=== PATIENT | female | born 1980 | race Caucasian/White ===

== ENCOUNTER 2018-07-07 20:57 | Emergency (ER) | payer OTHER ==
[~2018-07-07] VITALS: Ht 160 cm; Wt 72.6 kg
[2018-07-07 21:12] VITALS: BP 138/87
[2018-07-07 21:46] LABS: APPEARANCE,URINE CLOUDY (CLEAR)
[2018-07-07 21:47] LABS: BILIRUBIN,URINE NEGATIVE (NEGATIVE); BLOOD, URINE NEGATIVE (NEGATIVE); COLOR,URINE YELLOW (YELLOW); PH,URINE 6.5 (5.0-9.0); UGLUCOSE NEGATIVE (NEGATIVE)
[2018-07-07 21:48] LABS: LEUKOCYTE ESTERASE ,URINE 1+ (NEGATIVE); NITRITE, URINE POSITIVE (NEGATIVE)
[2018-07-07 21:55] LABS: RBC,URINE 11-20 (MOD) /HPF (0-5)
[2018-07-07 22:00] LABS: BASOPHILS # (AUTO) 0.1 K/uL (0.00-0.22); BASOPHILS % (AUTO) 0.7 % (0.0-2.0); EOSINOPHILS # (AUTO) 0.1 K/uL (0-0.4); EOSINOPHILS % (AUTO) 1.7 % (0.0-4.0); HEMATOCRIT 27.3 % (36-48); LYMPHOCYTES # (AUTO) 3.1 K/uL (2.5-16.5); LYMPHOCYTES % (AUTO) 38.1 % (20.5-51.1); MEAN CORPUSCULAR HEMOGLOBIN 18 pg (27-31); MEAN CORPUSCULAR HGB CONC 29 g/dL (33-37); MEAN CORPUSCULAR VOLUME 60.6 fL (80-94); MONOCYTES # (AUTO) 0.5 K/uL (0.8-1.0); MONOCYTES % (AUTO) 6.2 % (1.7-9.3); NEUTROPHILS # (AUTO) 4.3 K/uL (1.8-7.7); NEUTROPHILS % (AUTO) 53.3 % (42.2-75.2); PLATELET COUNT (AUTO) 285 K/uL (140-450); RED BLOOD CELL COUNT(AUTO) 4.51 MIL/uL (4.20-5.40); RED CELL DISTRIBUTION WIDTH 18.9 % (11.6-13.7); WHITE BLOOD COUNT (AUTO) 8.1 K/uL (4.8-10.8)
[2018-07-07 22:18] LABS: ANION GAP 13.2 (8-16); CARBON DIOXIDE 26.1 mmol/L (21-32); CREATININE 0.6 mg/dL (0.6-1.3); POTASSIUM 4.3 mmol/L (3.5-5.1)
[2018-07-07 22:20] LABS: BARBITURATE, URINE NEG. ng/ml (NEG <=200); BENZODIAZEPINE, URINE NEG. ng/mL (NEG <=200); CANNABINOID, URINE POS. ng/mL (NEG <=50); COCAINE, URINE NEG. ng/mL (NEG <=300); OPIATE, URINE NEG. ng/mL (NEG <=2000); PHENCYCLIDINE SCREEN,URINE NEG. ng/mL (NEG <=25)
[2018-07-07 22:24] LABS: ALBUMIN 3.9 g/dL (3.4-5.0); TOTAL BILIRUBIN 0.1 mg/dL (0.0-1.0)
[2018-07-07] MEDS: AZITHROMYCIN 250 MG TAB PO ONE (22:37)
[2018-07-07] MEDS: cefTRIAXone 250 MG in LIDOCAINE MPF 1% - 5 mL VIAL 0.9 ML IM ONE (22:37)
[2018-07-07 23:03] VITALS: BP 130/80
[2018-07-10 06:21] LABS: CHLAMYDIA TRACHOMATIS AMP DNA Negative (Negative)
== END 2018-07-07 23:03 | disposition home or self-care (01) ==
LOC: MED 20:57
DX: O23.41 Unspecified infection of urinary tract in pregnancy, first trimester (principal); Z3A.01 Less than 8 weeks gestation of pregnancy; O99.011 Anemia complicating pregnancy, first trimester; F15.90 Other stimulant use, unspecified, uncomplicated; I10 Essential (primary) hypertension; Z98.84 Bariatric surgery status
CPT/HCPCS: 36415; 80053; 80305; 81001; 81025; 84702; 85025; 87086; 96372; 99283; J0696; J2001; 87186; 87491

== ENCOUNTER 2020-02-29 11:23 | Inpatient (IN) | payer OTHER ==
[~2020-02-29] VITALS: Ht 160 cm; Wt 86.2 kg
[2020-02-29 11:25] VITALS: BP 149/94
--- NOTE | 2020-02-29 11:28 | NUR ---
pt amb to bed 4. repoted given to Brady DOMINGUEZ.
[2020-02-29] MEDS ORDERED: FAMOTIDINE 20 MG/2 ML VIAL IVP ONE (12:15)
[2020-02-29] MEDS ORDERED: ALUMINUM HYD/MAG/SIMETHICONE 30 ML UDC PO ONE (12:15)
--- NOTE | 2020-02-29 12:18 | NUR ---
39 y/o female from home c/o epigastric pain with nausea x 3 days. Pt states she is unable to pass gas at this time but feels as if she needs to. 8/10 pressure pain to abd. States increased pain with eating/drinking. Abd soft, round, nontender to palp. Bowel sounds hypoactive. Took [place] 1 hr ago for pain. medhx: gastric bypass
[2020-02-29 12:35] LABS: BASOPHILS % (AUTO) 0.5 % (0.0-2.0); EOSINOPHILS # (AUTO) 0.1 K/uL (0-0.4); EOSINOPHILS % (AUTO) 1.8 % (0.0-4.0); HEMATOCRIT 42.8 % (36-48); HEMOGLOBIN 14.1 g/dL (12.0-16.0); LYMPHOCYTES # (AUTO) 1.8 K/uL (2.5-16.5); LYMPHOCYTES % (AUTO) 24.7 % (20.5-51.1); MEAN CORPUSCULAR HEMOGLOBIN 31 pg (27-31); MEAN CORPUSCULAR HGB CONC 33 g/dL (33-37); MEAN CORPUSCULAR VOLUME 93.2 fL (80-94); MONOCYTES # (AUTO) 0.4 K/uL (0.8-1.0); MONOCYTES % (AUTO) 5.7 % (1.7-9.3); NEUTROPHILS # (AUTO) 4.9 K/uL (1.8-7.7); NEUTROPHILS % (AUTO) 67.3 % (42.2-75.2); PLATELET COUNT (AUTO) 203 K/uL (140-450); RED BLOOD CELL COUNT(AUTO) 4.59 MIL/uL (4.20-5.40); RED CELL DISTRIBUTION WIDTH 13.8 % (11.6-13.7); WHITE BLOOD COUNT (AUTO) 7.3 K/uL (4.8-10.8)
[2020-02-29 12:50] LABS: ALBUMIN 3.9 g/dL (3.4-5.0); ANION GAP 11.8 (8-16); CARBON DIOXIDE 27.6 mmol/L (21-32); CREATININE 0.9 mg/dL (0.6-1.3); POTASSIUM 4.4 mmol/L (3.5-5.1); TOTAL BILIRUBIN 0.4 mg/dL (0.0-1.0)
--- NOTE | 2020-02-29 12:50 | NUR ---
PT IS RESTING IN BED. VSS. RESP EVEN AND UNLABORED. ALL NEEDS MET AT THIS TIME
--- NOTE | 2020-02-29 13:23 | NUR ---
PT TAKEN TO CT
[2020-02-29] MEDS ORDERED: MORPHINE SULFATE 4 MG/ML SYR IVP ONE (14:30)
[2020-02-29] MEDS ORDERED: NACL 0.9% IV SCH (14:30)
[2020-02-29] MEDS ORDERED: ONDANSETRON IV SCH (14:30)
--- NOTE | 2020-02-29 14:40 | NUR ---
PT C/O SEVERE EPIGASTRIC PAIN, ERMD NOTIFIED.
[2020-02-29] MEDS ORDERED: ONDANSETRON 4 MG/2 ML VIAL IVP SCH (14:50)
[2020-02-29 14:56] LABS: APPEARANCE,URINE CLOUDY (CLEAR); BILIRUBIN,URINE 3+ (NEGATIVE); BLOOD, URINE 3+ (NEGATIVE); COLOR,URINE BROWN (YELLOW); LEUKOCYTE ESTERASE ,URINE 1+ (NEGATIVE); NITRITE, URINE POSITIVE (NEGATIVE); PH,URINE 6.5 (5.0-9.0); UGLUCOSE NEGATIVE (NEGATIVE)
[2020-02-29 15:13] LABS: PROTHROMBIN TIME 9.7 secs (10.8-13.4)
[2020-02-29 15:19] LABS: RBC,URINE TOO NUMEROUS TO COUN /HPF (0-5)
[2020-02-29 15:21] LABS: URINE AMORPHOUS URATE 1+ /HPF (None Seen)
[2020-02-29] MEDS ORDERED: CLONIDINE HYDROCHLORIDE 0.1 MG TAB PO PRN (16:00)
[2020-02-29] MEDS ORDERED: ALUMINUM HYD/MAG/SIMETHICONE 30 ML UDC PO PRN (16:00)
[2020-02-29] MEDS ORDERED: bisacodyL 10 MG SUPP RC PRN (16:00)
[2020-02-29] MEDS ORDERED: ONDANSETRON 4 MG/2 ML VIAL IVP PRN ×2 (16:00→18:45)
[2020-02-29] MEDS ORDERED: DOCUSATE SODIUM 250 MG GELCAP PO PRN (16:00)
[2020-02-29] MEDS ORDERED: MAG SULF 2000 MG/WATER PREMIX 50 ML IV PRN (16:00)
[2020-02-29] MEDS ORDERED: guaiFENesin DM 200/20 MG-10 ML 10 ML UDC PO PRN (16:00)
[2020-02-29] MEDS ORDERED: ALBUTEROL 0.083% 2.5 MG/3 ML NEBU INH PRN (16:00)
[2020-02-29] MEDS ORDERED: ZOLPIDEM 5 MG TAB PO PRN (16:00)
[2020-02-29] MEDS ORDERED: diphenhydrAMINE 50 MG/ML VIAL IVP PRN (16:00)
[2020-02-29] MEDS ORDERED: HYDROcodone/APAP 5/325 MG 1 TAB TAB PO PRN ×2 (16:00)
[2020-02-29] MEDS ORDERED: ACETAMINOPHEN 650 MG SUPP RC PRN (16:00)
[2020-02-29] MEDS ORDERED: ACETAMINOPHEN 325 MG TAB PO PRN (16:00)
[2020-02-29] MEDS ORDERED: IPRATROPIUM 0.02% 0.5 MG/2.5 ML NEBU INH PRN (16:00)
[2020-02-29] MEDS ORDERED: LORazepam 2 MG/ML VIAL IVP PRN (16:00)
[2020-02-29] MEDS ORDERED: POTASSIUM CHLORIDE 10 MEQ TABER PO PRN (16:00)
[2020-02-29] MEDS ORDERED: SODIUM PHOSPHATE 118 ML ENEM RC PRN (16:00)
[2020-02-29] MEDS ORDERED: MAGNESIUM OXIDE 400 MG TAB PO PRN (16:00)
[2020-02-29] MEDS ORDERED: HYDROmorphone PFS 2 MG/ML SYR IVP PRN (16:05)
[2020-02-29] MEDS ORDERED: KETOROLAC 30 MG/ML VIAL ONE (18:25)
[2020-02-29] MEDS ORDERED: SEVOFLURANE 250 ML BTL INH ONE (18:25)
[2020-02-29] MEDS ORDERED: PROPOFOL 200 MG/20 ML VIAL IV ONE (18:25)
[2020-02-29] MEDS ORDERED: ONDANSETRON 4 MG/2 ML VIAL ONE (18:25)
[2020-02-29] MEDS ORDERED: MIDAZOLAM 2 MG/2 ML VIAL ONE (18:25)
[2020-02-29] MEDS ORDERED: NEOSTIGMINE 1:1000 10 MG/10 ML VIAL ONE (18:25)
[2020-02-29] MEDS ORDERED: GLYCOPYRROLATE 0.2 MG/ML VIAL ONE (18:25)
[2020-02-29] MEDS ORDERED: fentaNYL citrate 0.05 MG/ML VIAL ONE (18:25)
[2020-02-29] MEDS ORDERED: ROCURONIUM 50 MG/5 ML VIAL IV ONE (18:25)
[2020-02-29] MEDS ORDERED: MORPHINE SULFATE 4 MG/ML SYR IVP PRN (18:45)
[2020-02-29] MEDS ORDERED: BUPIVACAINE-MPF 0.5% 30 ML VIAL INJ ONE (19:09)
[2020-02-29] MEDS ORDERED: HYDROmorphone 1 MG/ML AMP IVP ONE (19:10)
--- NOTE | 2020-02-29 20:29 | NUR ---
PT SEEN AND ASSESSED. PT ON ROOM AIR WITH SPO2 OF 97%. CLEAR BREATH SOUNDS ON AUSCULTATION. PT IN NO APPARENT RESPIRATORY DISTRESS AT THIS TIME. PRN TX NOT INDICATED AT THIS TIME. WILL CONTINUE TO MONITOR PT.
[2020-02-29 20:35] VITALS: BP 101/59
--- NOTE | 2020-02-29 20:35 | NUR ---
ADMITTED THE PATIENT FROM RECOVERY ROOM BY BED. PATIENT S/O INCARCERATED VENTRAL HERNIA REPAIR. PATIENT HAS BIKINI ABDOMINAL INCISION SITE WITH UDAY DRAIN. DRESSING C/D/I. PT STILL DROWSY AND SLEEPY BUT EASY TO AROUSED. DENIES ANY PAIN AT THIS TIME. IVF INFUSING ORDERED. SR ON MATH AND SCIENCES DEPARTMENT CHAIR, HR 60'S TO 70'S. CALL LIGHT WITHIN REACH. WILL CONTINUE POC AND MONITORING.
[2020-02-29] MEDS: NACL 0.9% 1,000 ML IV SCH (20:50)
[2020-02-29] MEDS: MORPHINE SULFATE 2 MG/ML SYR IVP PRN (22:11)
--- NOTE | 2020-02-29 22:15 | NUR ---
PT WOKE UP AND ASKED FOR SOMETHING TO DRINK AND COMPLAINING OF ABDOMINAL INCISION SITE PAIN 02/02. PRN MORPHINE 2 MG IVP GIVEN ORDERED. BP- 106/76, HR-62, [id number]-14% ON RA. WILL RE ASSESS PAIN LATER.
[2020-03-01] VITALS: BP 117/70
--- NOTE | 2020-03-01 | NUR ---
VITAL SIGNS STABLE, AFEBRILE, SATING 99% ON RA. ABDOMINAL SURGICAL SITE AND UDAY DRAIN DRESSING C/D/I. NO COMPLAIN OF PAIN AT THIS TIME.
--- NOTE | 2020-03-01 00:30 | NUR ---
PATIENT WOKE UP AND WALK TO THE BATHROOM WITH MINIMAL ASSISTANCE. PATIENT TOLERATED IT WELL. DENIES PAIN AT THIS TIME.
[2020-03-01] MEDS: NACL 0.9% 1,000 ML IV SCH ×3 (01:55→21:55)
--- NOTE | 2020-03-01 02:00 | NUR ---
PATIENT ASLEEP AT THIS TIME. VISIBLE CHEST RISE AND FALL NOTED. NO SIGN AND SYMPTOMS OF DISTRESS NOTED. CALL LIGHT WITHIN REACH.
[2020-03-01] MEDS: MORPHINE SULFATE 2 MG/ML SYR IVP PRN ×3 (03:25→13:28)
--- NOTE | 2020-03-01 03:25 | NUR ---
PATIENT WOKE UP AND C/O PAIN 7/10 ON THE INCISION SITE. PRN MORPHINE 2MG IVP GIVEN ORDERED. BP 108/62, HR-80, SATING 99% ON RA.
[2020-03-01 04:00] VITALS: BP 108/62
--- NOTE | 2020-03-01 05:31 | NUR ---
PT BOYFRIEND ERICK CALLED EARLIER AND GAVE A BRIEF UPDATE ABOUT THE PT CONDITION. PATIENT MADE AWARE WHEN SHE WOKE UP AND STATED ITS OK TO UPDATE HER BOYFRIEND ABOUT HER CONDITION. VITAL SIGNS STABLE,AFEBRILE,SATING 99% ON RA. ABDOMINAL INCISION DRESSING STAINED WITH SEROSANGUINEOUS DRAINAGE AND MARKED IT. WILL REINFORCE THE DRESSING NEEDED.
[2020-03-01 06:15] LABS: BASOPHILS % (AUTO) 0.1 % (0.0-2.0); EOSINOPHILS # (AUTO) 0.1 K/uL (0-0.4); EOSINOPHILS % (AUTO) 1.6 % (0.0-4.0); HEMATOCRIT 41.5 % (36-48); HEMOGLOBIN 13.5 g/dL (12.0-16.0); LYMPHOCYTES % (AUTO) 12.4 % (20.5-51.1); MEAN CORPUSCULAR HEMOGLOBIN 31 pg (27-31); MEAN CORPUSCULAR HGB CONC 33 g/dL (33-37); MEAN CORPUSCULAR VOLUME 94.4 fL (80-94); MONOCYTES # (AUTO) 0.5 K/uL (0.8-1.0); MONOCYTES % (AUTO) 6.8 % (1.7-9.3); NEUTROPHILS # (AUTO) 6.1 K/uL (1.8-7.7); NEUTROPHILS % (AUTO) 79.1 % (42.2-75.2); PLATELET COUNT (AUTO) 180 K/uL (140-450); RED BLOOD CELL COUNT(AUTO) 4.39 MIL/uL (4.20-5.40); RED CELL DISTRIBUTION WIDTH 14.1 % (11.6-13.7); WHITE BLOOD COUNT (AUTO) 7.8 K/uL (4.8-10.8)
--- NOTE | 2020-03-01 06:26 | NUR ---
PT STABLE. NO ACUTE EVENTS THROUGHOUT THE NIGHT. NO SIGN AND SYMPTOMS OF DISTRESS NOTED. NO COMPLAIN AT THIS TIME. ALL NEEDS ATTENDED. CALL LIGHT WITHIN REACH. WILL ENDORSE THE PT TO THE ONCOMING RN FOR CONTINUITY OF CARE.
[2020-03-01 07:01] LABS: ALBUMIN 3.5 g/dL (3.4-5.0); ANION GAP 9.4 (8-16); CARBON DIOXIDE 30.2 mmol/L (21-32); CREATININE 0.8 mg/dL (0.6-1.3); POTASSIUM 4.6 mmol/L (3.5-5.1); TOTAL BILIRUBIN 0.4 mg/dL (0.0-1.0)
--- NOTE | 2020-03-01 07:29 | NUR ---
ENDORSED THE PT TO DAY RN FOR CONTINUITY OF CARE. PT STABLE. ALL NEEDS MET. SIGNING OFF.
--- NOTE | 2020-03-01 07:32 | NUR ---
RECEIVED PATIENT FROM NIGHT NURSE. PATIENT IS AWAKE, ALERT, ORIENTED X4. RESP EVEN AND UNLABORED ON ROOM AIR. C/O PAIN AT THIS TIME TO LOWER ABDOMEN ON SCALE 7/10. WILL MEDICATE APPROPRIATELY. RAC 20 NOTED AND PATENT. SKIN WARM TO TOUCH. PLAN OF CARE DISCUSSED WITH PATIENT. PATIENT VERBALIZED UNDERSTANDING. SAFETY MEASURES IN PLACE. CALL LIGHT WITHIN REACH. WILL CONTINUE TO MONITOR.
[2020-03-01 08:00] VITALS: BP 112/64
--- NOTE | 2020-03-01 09:04 | NUR ---
PATIENT HAS BEEN SCREENED AND CATEGORIZED MODERATE NUTRITION RISK. PATIENT WILL BE SEEN WITHIN 3-5 DAYS OF ADMISSION. 03/03/20 03/05/[address]
--- NOTE | 2020-03-01 09:05 | NUR ---
MORNING ROUTINE MEDICATIONS GIVEN. ROCEPHIN IVPB GIVEN. DILAUDID ORDERED FOR 02/28 NOT GIVEN. VITALS STABLE. SURGICAL WOUND DRESSING INTACT. NO ACTIVE DRAINAGE NOTED. PATIENT GIVEN MORPHINE FOR PAIN PRN. CALL LIGHT WITHIN REACH. WILL CONTINUE TO MONITOR.
--- NOTE | 2020-03-01 11:05 | NUR ---
PATIENT TRANSFERRED TO [facility]. PATIENT IS SLEEPING BUT CAN BE EASILY AWAKEN, ALERT. PATIENT IV PUMP ALARM KEEPS BEEPING. PATIENT ARMBOARD REINFORCED. ENCOURAGED PATIENT TO KEEP HER RIGHT ARM STRAIGHT. PATIENT VERBALIZED UNDERSTANDING. RESP EVEN AND UNLABORED. CALL LIGHT WITHIN REACH. WILL CONTINUE TO MONITOR.
--- NOTE | 2020-03-01 11:07 | NUR ---
WEEKEND ANCHOR NOTE: Patient's Orientation Unable To Assess Information Provided By ERICK - Comments SW WAS UNABLE TO MEET PATIENT AT BEDSIDE DUE TO MEDICAL CONDITION. Threading Machine Operator, Realtionship and Phone Number ERICK DELONG SIGNIFICANT OTHER [phone] Healthcare Power of Professional Programmer Analyst No Does Patient Have a POLST No Identifying Problems No Social Work Triggers Is A Social Work Consult Needed No Mandate Report Filed No Explanation Of Identifying Problems PATIENT IS A 39-YEAR-OLD FEMALE ADMITTED FOR INCARCERATED HERNIA. PATIENT HAS PMHX OF HIGH BLOOD PRESSURE AND OBESITY. Admitted From Home Pre-Admission Level Of Functioning Status Independent/Ambulatory Prior Resources/Services Used In Last 12 Months No Prior Resources Used Prior DME No Prior DME Used Living Situation Lives With Family House Patient Had Caregiver No Home Support No Caregiver Issues Financial Issues No Known Financial Issue Referral To The Financial Counselor Needed No Factors/Needs No D/C Needs Identified Pt/Rep Participated In Discharge Plan Yes Patient/Family Agress With Discharge Plan Yes Discharge Plan Comments TENTATIVE DISCHARGE PLAN IS FOR PATIENT TO RETURN HOME. DC Plan Status Initiated
--- NOTE | 2020-03-01 11:48 | NUR ---
RECEIVED PATIENT IN STABLE CONDITION FROM AM NURSE, VENICE, FOR CONTINUITY OF CARE. AAOX4, PATIENT ASLEEP AND IN BED, EASILY AROUSABLE. NO SIGNS OF DISTRESS NOTED. IV SITE NOTED, PATENT AND INTACT. RESPIRATIONS EVEN AND UNLABORED ON RA. CALL LIGHT WITHIN REACH. SAFETY PRECAUTIONS IN PLACE. WILL CONTINUE TO MONITOR.
--- NOTE | 2020-03-01 11:48 | NUR ---
TRANSFER PATIENT CARE TO [facility]. PATIENT IN STABLE CONDITION.
--- NOTE | 2020-03-01 13:28 | NUR ---
MORPHINE IVP 2MG GIVEN FOR ABDOMINAL PAIN OF 05/05. BP 104/68, HR 89. NO SIGNS OF DISTRESS NOTED. WILL CONTINUE TO MONITOR.
--- NOTE | 2020-03-01 14:30 | NUR ---
RECEIVED CALL FROM DR. OCHOA. PATIENT IS CLEARED FOR DISCHARGE FROM SURGICAL [facility]ANDPOINT. FOLLOW UP WITH DR. OCHOA 2 WEEKS AFTER DISCHARGE. PATIENT IS ALSO CLEARED TO ADVANCE TO FULL LIQUID DIET. WILL FOLLOW THROUGH. WILL CONTINUE TO MONITOR.
[2020-03-01 16:00] VITALS: BP 98/55
--- NOTE | 2020-03-01 16:10 | NUR ---
DISCHARGE PLANNING: THIS IS A 39 Y/O FEMALE PATIENT FROM HOME, WHO CAME IN DUE TO NAUSEA AND ABDOMINAL PAIN. PAST MEDICAL AND SURGICAL HISTORY INCLUDE HERNIA REPAIR, GASTRIC BYPASS SURGERY. INITIAL DIAGNOSIS OF INCARCERATED HERNIA. S/P REPAIR OF INCARCERATED INCISIONAL VENTRAL HERNIA BY DR. OCHOA 02/29/2020. ON ROCEPHIN. DC PLAN BACK TO HOME ONCE STABLE.
--- NOTE | 2020-03-01 17:40 | NUR ---
PATIENT IS ASLEEP AND IN BED. NO SIGNS OF DISTRESS NOTED, PATIENT VERBALIZES NO PAIN. WILL CONTINUE TO MONITOR.
--- NOTE | 2020-03-01 19:20 | NUR ---
ENDORSED TO SWIMMING POOL MAINTENANCE SUPERVISOR NURSE FOR CONTINUITY OF CARE.
--- NOTE | 2020-03-01 19:25 | NUR ---
RECEIVED PT IN STABLE CONDITION FROM AM NURSE. MEDS SURG PT. AWAKE,ALERT AND ORIENTED X4. S/P INCARCERATED VENTRAL HERNIA REPAIR. IVF INFUSING WELL ON THE RT AC G#20 . CLEAR AND PATENT. NO C/O PAIN AT THIS TIME. PLAN OF CARE DISCUSSED AND VERBALIZED UNDERSTANDING. FREQ ROUNDS. NEEDED. BED ON LOW POSITION. CALL LIGHT WITHIN EASY REACH. WILL CONTINUE TO MONITOR.
--- NOTE | 2020-03-01 19:40 | NUR ---
PT C/O THAT SHE IS ALREADY HUNGRY . NO N/V NOTED. TOLERATE CLEAR LIQUID WELL. PAGED DR. OCHOA. CALLED BACK. MADE HIM AWARE. HE ORDER REGULAR DIET.
--- NOTE | 2020-03-01 20:50 | NUR ---
RECEIVED PT FROM AM SHIFT. PT SEEN AND ASSESSED. PT ON ROOM AIR WITH SPO2 OF 97%. CLEAR BREATH SOUNDS ON AUSCULTATION. PT IN NO APPARENT RESPIRATORY DISTRESS AT THIS TIME. PRN TX NOT INDICATED AT THIS TIME. WILL CONTINUE TO MONITOR PT.
--- NOTE | 2020-03-01 21:00 | NUR ---
PT HAD SOME CRACKERS AND JUICE. TOLERATED WELL.
--- NOTE | 2020-03-01 23:00 | NUR ---
MADE ROUNDS. PT SLEEPING. NO S/S OF ANY DISCOMFORT NOR PAIN NOTED.
[2020-03-02 00:30] VITALS: BP 105/52
--- NOTE | 2020-03-02 01:00 | NUR ---
CHECKED ON PT. SLEEPING. NO S/S PAIN NOTED. IVF INFUSING WELL.
[2020-03-02] MEDS: NACL 0.9% 1,000 ML IV SCH (01:07)
[2020-03-02] MEDS: MORPHINE SULFATE 2 MG/ML SYR IVP PRN (03:13)
--- NOTE | 2020-03-02 03:13 | NUR ---
MADE ROUND . AWAKE. C/O POST OP PAIN. MEDICATED ORDERED.
--- NOTE | 2020-03-02 04:45 | NUR ---
CHECKED ON PT. SLEEPING. IV INFUSING WELL. RESPIRATION EVEN AND UNLABORED.
--- NOTE | 2020-03-02 06:30 | NUR ---
DRESSING ON THE LOWER ABDOMEN CHANGED. PT TOLERATED WELL.
[2020-03-02 06:34] LABS: BASOPHILS % (AUTO) 0.3 % (0.0-2.0); EOSINOPHILS # (AUTO) 0.1 K/uL (0-0.4); EOSINOPHILS % (AUTO) 2.1 % (0.0-4.0); HEMATOCRIT 37.6 % (36-48); HEMOGLOBIN 12.3 g/dL (12.0-16.0); LYMPHOCYTES # (AUTO) 1.2 K/uL (2.5-16.5); LYMPHOCYTES % (AUTO) 16.5 % (20.5-51.1); MEAN CORPUSCULAR HEMOGLOBIN 31 pg (27-31); MEAN CORPUSCULAR HGB CONC 33 g/dL (33-37); MEAN CORPUSCULAR VOLUME 94.4 fL (80-94); MONOCYTES # (AUTO) 0.6 K/uL (0.8-1.0); MONOCYTES % (AUTO) 9.3 % (1.7-9.3); NEUTROPHILS % (AUTO) 71.8 % (42.2-75.2); PLATELET COUNT (AUTO) 169 K/uL (140-450); RED BLOOD CELL COUNT(AUTO) 3.98 MIL/uL (4.20-5.40); RED CELL DISTRIBUTION WIDTH 13.7 % (11.6-13.7)
[2020-03-02 07:07] LABS: ANION GAP 9.4 (8-16); CREATININE 0.8 mg/dL (0.6-1.3); POTASSIUM 4.4 mmol/L (3.5-5.1)
--- NOTE | 2020-03-02 07:15 | NUR ---
ENDORSED PT IN STABLE CONDITION TO AM NURSE FOR CONTINUITY OF CARE.
--- NOTE | 2020-03-02 07:20 | NUR ---
RECEIVED BEDSIDE REPORT FROM NIGHTSHIFT NURSE. PT RESTING IN BED, ABLE TO MAKE NEEDS KNOWN. RESPIRATIONS EVEN AND UNLABORED WITH NO SOB OR RESPIRATORY DISTRESS. SKIN WARM AND DRY TO TOUCH. IV SITE IN RAC 22G IS CLEAN, DRY, AND INTACT. SAFETY MEASURES IN PLACE. WILL CONTINUE TO MONITOR
[2020-03-02 08:00] VITALS: BP 99/50
--- NOTE | 2020-03-02 09:15 | NUR ---
ADMINISTERED SCHED MED PRESCRIBED PER MD ORDER. PT TOLERATED WELL. MEDICATION EDUCATION PERFORMED. PT VERBALIZED UNDERSTANDING. SAFETY MEASURES IN PLACE. WILL CONTINUE TO MONITOR
--- NOTE | 2020-03-02 10:15 | NUR ---
PATIENT EXPRESSED THAT SHE WANTS TO LEAVE AMA. EDUCATED PATIENT ON BENEFITS OF STAYING UNTIL THE DOCTOR ASSESSES HER. PT SAID THAT SHE WILL THINK ABOUT IT BUT SHE STILL WANTS TO GO AMA. WILL CONTINUE TO MONITOR
--- NOTE | 2020-03-02 10:40 | NUR ---
PATIENT STATED THAT SHE WANTS TO LEAVE AMA DESPITE THE FACT THAT SHE WILL BE DISCHARGED TODAY. PATIENT SAID, "I WANT TO GO HOME RIGHT NOW. I DON'T WANT TO WAIT FOR THE DOCTOR TO SEE ME OR WAIT FOR HIS ORDER. SO I AM LEAVING AMA AND WALKING OUT THAT DOOR." DR. LIZTETE RAYO AND DR. OCHOA PAGED ABOUT PATIENT LEAVING AMA. MDS ARE AWARE. EXPLAINED AGAIN TO PATIENT THE BENEFITS OF STAYING UNTIL THE DOCTOR SEES HER. PATIENT VERBALIZED UNDERSTANDING AND SAID "I STILL WANT TO LEAVE AMA. I AM LEAVING." EDUCATED PATIENT TO VISIT ED FOR ANY SIGNS OF DISTRESS. PT VERBALIZED UNDERSTANDING. EDUCATED PATIENT TO VISIT DOCTOR WITHIN A WEEK OF DISCHARGE. PT VERBALIZED UNDERSTANDING. REMOVED INTACT IV CANNULA AND ID BANDS. PATIENT GATHERED ALL OF HER BELONGINGS AND CHANGED INTO HER OWN CLOTHES. PT LEFT AMA
== END 2020-03-02 10:40 | disposition left against medical advice (07) | DRG 227 ==
LOC: MED 11:23 → MMU 14:48 → UNDOADMIN 16:00 → MTU 16:00 → MMU 16:28 → MTU 16:28 → MMU 16:45
PROVIDERS: ADMIT Internal Medicine Pulmonary Disease; ATTEND Internal Medicine Pulmonary Disease
PROC: 0WQF0ZZ Repair Abdominal Wall, Open Approach (ICD-10-PCS; principal; 2020-02-29 17:00)
DX: K43.0 Incisional hernia with obstruction, without gangrene (principal); E66.9 Obesity, unspecified; F17.210 Nicotine dependence, cigarettes, uncomplicated; I10 Essential (primary) hypertension; Z53.29 Procedure and treatment not carried out because of patient's decision for other reasons; N39.0 Urinary tract infection, site not specified; Z68.33 Body mass index [BMI] 33.0-33.9, adult; Z98.84 Bariatric surgery status
CPT/HCPCS: 36415; 80048; 80053; 81001; 82550; 83605; 83690; 85025; 85610; 86900; 86901; 87070; 87075; 87086; 87186; 87205; 96374; 96375; 99291; J0696; J1885; J2250; J2270; J2405; J2704; J2710; J3010; J3490; J7030; J7060; Q9967

== ENCOUNTER 2020-03-06 08:01 | Emergency (ER) | payer OTHER ==
[~2020-03-06] VITALS: Ht 160 cm; Wt 86.2 kg
[2020-03-06 08:04] VITALS: BP 148/94
--- NOTE | 2020-03-06 08:18 | NUR ---
Patient ambulated to bed 7. RN evaluating patient at bedside.
--- NOTE | 2020-03-06 08:22 | NUR ---
39 y/o female from home c/o incisional site on abd s/p hernia surgey. States she left hospital AMA thinking she had small incisions in her abd. While showering she realized incision site was large and she did not know how to do wound care. States clear/pus like discharge from incision site. Placed bandaids over site. Afebrile, denies chills. Has not taken any medication for pain
--- NOTE | 2020-03-06 08:23 | NUR ---
Dr. Mendoza is evaluating the patient at bedside.
[2020-03-06] MEDS ORDERED: NACL 0.9% 500 ML IV SCH (08:25)
[2020-03-06] MEDS ORDERED: MORPHINE SULFATE 2 MG/ML SYR IVP ONE (08:40)
[2020-03-06] MEDS ORDERED: ONDANSETRON 4 MG/2 ML VIAL IVP ONE (08:40)
--- NOTE | 2020-03-06 08:42 | NUR ---
Wound culture collected from incision site and given to lab
[2020-03-06] MEDS ORDERED: metroNIDAZOLE 500 MG/NS PREMIX 100 ML IV ONE (08:50)
[2020-03-06] MEDS ORDERED: cefTRIAXone 1,000 MG VIAL ONE (08:52)
[2020-03-06 08:53] LABS: BASOPHILS % (AUTO) 0.5 % (0.0-2.0); EOSINOPHILS # (AUTO) 0.4 K/uL (0-0.4); EOSINOPHILS % (AUTO) 6.2 % (0.0-4.0); HEMATOCRIT 35.5 % (36-48); HEMOGLOBIN 11.9 g/dL (12.0-16.0); LYMPHOCYTES # (AUTO) 1.9 K/uL (2.5-16.5); LYMPHOCYTES % (AUTO) 26.1 % (20.5-51.1); MEAN CORPUSCULAR HEMOGLOBIN 31 pg (27-31); MEAN CORPUSCULAR HGB CONC 33 g/dL (33-37); MEAN CORPUSCULAR VOLUME 92.1 fL (80-94); MONOCYTES # (AUTO) 0.4 K/uL (0.8-1.0); MONOCYTES % (AUTO) 4.9 % (1.7-9.3); NEUTROPHILS # (AUTO) 4.5 K/uL (1.8-7.7); NEUTROPHILS % (AUTO) 62.3 % (42.2-75.2); PLATELET COUNT (AUTO) 270 K/uL (140-450); RED BLOOD CELL COUNT(AUTO) 3.86 MIL/uL (4.20-5.40); RED CELL DISTRIBUTION WIDTH 13.8 % (11.6-13.7); WHITE BLOOD COUNT (AUTO) 7.2 K/uL (4.8-10.8)
--- NOTE | 2020-03-06 08:53 | NUR ---
Patient taken to x-ray via wheelchair by tech.
[2020-03-06 09:07] LABS: PROTHROMBIN TIME 9.4 secs (10.8-13.4)
[2020-03-06 09:16] LABS: ALBUMIN 3.2 g/dL (3.4-5.0); ANION GAP 14.9 (8-16); CREATININE 0.8 mg/dL (0.6-1.3); TOTAL BILIRUBIN 0.2 mg/dL (0.0-1.0)
[2020-03-06 09:22] LABS: POTASSIUM 4.9 mmol/L (3.5-5.1)
--- NOTE | 2020-03-06 09:47 | NUR ---
Pt states decrease in pain at this time. Resting with eyes closed positioned for comfort. VSS. Will continue to monitor
--- NOTE | 2020-03-06 10:57 | NUR ---
Nonadhered dressing placed to pts wound. Pt verbalizes understanding of wound care.
--- NOTE | 2020-03-06 11:00 | NUR ---
IV removed and 2x2 gauze placed over IV site
--- NOTE | 2020-03-06 11:03 | NUR ---
applied dressing to right lower abd without any issues
[2020-03-06 11:08] VITALS: BP 136/88
--- NOTE | 2020-03-06 11:08 | NUR ---
Patient discharged with v/s stable. Written and verbal after care instructions given and explained. Patient alert, oriented and verbalized understanding of instructions. Ambulatory with steady gait. All questions addressed prior to discharge. ID band removed. Patient advised to follow up with PMD. Rx of Narcan 4mg, Bactrim 800mg, Flagyl 500mg, [place] 5mg, and Motrin 800mg given. Patient educated on indication of medication including possible reaction and side effects. Opportunity to ask questions provided and answered.
== END 2020-03-06 11:08 | disposition home or self-care (01) ==
LOC: MED 08:01
DX: K91.89 Other postprocedural complications and disorders of digestive system (principal); R10.32 Left lower quadrant pain; R19.7 Diarrhea, unspecified; R11.0 Nausea; I10 Essential (primary) hypertension; Z90.49 Acquired absence of other specified parts of digestive tract; Z98.890 Other specified postprocedural states; Y83.9 Surgical procedure, unspecified as the cause of abnormal reaction of the patient, or of later complication, without mention of misadventure at the time of the procedure; Y92.89 Other specified places as the place of occurrence of the external cause
CPT/HCPCS: 36415; 74022; 80053; 81002; 81025; 83605; 85025; 85610; 85730; 87040; 87070; 96365; 96368; 96375; 99284; J0696; J2270; J2405; J3490; 87186

== ENCOUNTER 2020-04-01 12:28 | Emergency (ER) | payer OTHER ==
[~2020-04-01] VITALS: Ht 160 cm; Wt 90.7 kg
[2020-04-01 12:38] VITALS: BP 153/79
--- NOTE | 2020-04-01 12:56 | NUR ---
URINE SAMPLE CUP PROVIDED TO PT
--- NOTE | 2020-04-01 12:58 | NUR ---
39/F C/O LLQ/LOWER MID ABDOMINAL PAIN ,HEADACHE , BODY ACHES X 3 DAYS. NAUSEA WITHOUT VOMITING. HERNIA REPAIR SURGERY 1 MONTH AGO HERE, DRAIN REMOVED FROM LOWER ABD A FEW DAYS AGO, DRESSING C/D/I. VSS MED HX: 2 HERNIA REPAIR, 5 C -SECTIONS,GASTRIC BYPASS, CHOLECYSTECTOMY
[2020-04-01] MEDS ORDERED: NACL 0.9% 1,000 ML IV ONE ×2 (13:28→17:20)
[2020-04-01] MEDS ORDERED: LORazepam 2 MG/ML VIAL IVP ONE (13:30)
[2020-04-01] MEDS ORDERED: ONDANSETRON 4 MG/2 ML VIAL IVP ONE (13:30)
[2020-04-01] MEDS ORDERED: KETOROLAC 30 MG/ML VIAL IVP ONE (13:30)
[2020-04-01 13:54] LABS: BASOPHILS % (AUTO) 0.1 % (0.0-2.0); EOSINOPHILS % (AUTO) 0.3 % (0.0-4.0); HEMATOCRIT 37.8 % (36-48); HEMOGLOBIN 12.3 g/dL (12.0-16.0); LYMPHOCYTES # (AUTO) 0.6 K/uL (2.5-16.5); LYMPHOCYTES % (AUTO) 6.2 % (20.5-51.1); MEAN CORPUSCULAR HEMOGLOBIN 30 pg (27-31); MEAN CORPUSCULAR HGB CONC 33 g/dL (33-37); MEAN CORPUSCULAR VOLUME 90.6 fL (80-94); MONOCYTES # (AUTO) 0.9 K/uL (0.8-1.0); MONOCYTES % (AUTO) 9.6 % (1.7-9.3); NEUTROPHILS # (AUTO) 7.8 K/uL (1.8-7.7); NEUTROPHILS % (AUTO) 83.8 % (42.2-75.2); PLATELET COUNT (AUTO) 171 K/uL (140-450); RED BLOOD CELL COUNT(AUTO) 4.17 MIL/uL (4.20-5.40); RED CELL DISTRIBUTION WIDTH 13.9 % (11.6-13.7); WHITE BLOOD COUNT (AUTO) 9.3 K/uL (4.8-10.8)
[2020-04-01 14:16] LABS: ALBUMIN 3.2 g/dL (3.4-5.0); ANION GAP 17.4 (8-16); CARBON DIOXIDE 20.3 mmol/L (21-32); CREATININE 1.1 mg/dL (0.6-1.3); POTASSIUM 4.7 mmol/L (3.5-5.1); TOTAL BILIRUBIN 0.4 mg/dL (0.0-1.0)
--- NOTE | 2020-04-01 14:52 | NUR ---
URINE SAMPLE HANDED TO PHLEB
--- NOTE | 2020-04-01 15:00 | NUR ---
TO CT SCAN VIA [facility]
[2020-04-01 15:05] LABS: BILIRUBIN,URINE NEGATIVE (NEGATIVE); BLOOD, URINE TRACE-I (NEGATIVE); COLOR,URINE YELLOW (YELLOW); LEUKOCYTE ESTERASE ,URINE NEGATIVE (NEGATIVE); NITRITE, URINE POSITIVE (NEGATIVE); UGLUCOSE NEGATIVE (NEGATIVE)
[2020-04-01 15:08] LABS: APPEARANCE,URINE CLOUDY (CLEAR)
--- NOTE | 2020-04-01 15:13 | NUR ---
BACK FROM CT SCAN VIA [facility]
[2020-04-01 15:20] LABS: RBC,URINE 0-5 /HPF (0-5); WBC,URINE 0-5 /HPF (0-5)
[2020-04-01 15:28] LABS: BARBITURATE, URINE NEGATIVE ng/ml (NEG <=200); BENZODIAZEPINE, URINE NEGATIVE ng/mL (NEG <=200); CANNABINOID, URINE POSITIVE ng/mL (NEG <=50); COCAINE, URINE NEGATIVE ng/mL (NEG <=300); OPIATE, URINE NEGATIVE ng/mL (NEG <=2000); PHENCYCLIDINE SCREEN,URINE NEGATIVE ng/mL (NEG <=25)
--- NOTE | 2020-04-01 16:34 | NUR ---
DR. DELGADILLO SPEAKING W/ PT AT BEDSIDE
[2020-04-01 18:24] VITALS: BP 112/68
--- NOTE | 2020-04-03 08:54 | NUR ---
LATE ENTRY-CONFIRMED WITH RN NS INFUSION COMPLETED AT 8094 04/01/20.
--- NOTE | 2020-04-04 19:30 | NUR ---
RECEIVED URINE C&S REPORT. REPORT GIVEN TO INESSA MÉNDEZ.
--- NOTE | 2020-04-04 20:15 | NUR ---
Urine culture received from lab. Culture and sensitivity received and shown to Dr. Brand. New Rx for levaquin 250mg PO x 5 days received. Patient called 3x with no answer, voicemail left. Copy of C&S placed in discrepancy folder.
--- NOTE | 2020-04-05 11:25 | NUR ---
CALLED [facility] TO PRESCRIBE NEW MED ORDER FROM INESSA MÉNDEZ: LEVAQUIN 250MG TAB PER DAY FOR THE NEXT 5 DAYS.
== END 2020-04-01 18:21 | disposition home or self-care (01) ==
LOC: MED 12:28
DX: R10.30 Lower abdominal pain, unspecified (principal); K43.9 Ventral hernia without obstruction or gangrene; F15.10 Other stimulant abuse, uncomplicated; I10 Essential (primary) hypertension; F17.210 Nicotine dependence, cigarettes, uncomplicated; Z98.84 Bariatric surgery status
CPT/HCPCS: 36415; 74176; 80053; 80305; 81001; 81025; 83690; 85025; 87086; 87186; 96361; 96374; 96375; 99285; C1758; J1885; J2060; J2405; J7030

== ENCOUNTER 2020-04-04 05:09 | Emergency (ER) | payer OTHER ==
[~2020-04-04] VITALS: Ht 160 cm; Wt 90.7 kg
[2020-04-04 05:13] VITALS: BP 127/77
--- NOTE | 2020-04-04 05:25 | NUR ---
39 YO FEMALE S/P HERNIA REPAIR SURGERY WITH DRAIN. DRAIN WAS REMOVED. WOUND NOT HEALING. ACCORDING TO PT "FECES IS POURING OUT OF SURGICAL WOUND SITE." PT STATES PAIN IS 7/10 AT THIS TIME.
--- NOTE | 2020-04-04 06:04 | NUR ---
DR. DOAN AT BEDSIDE EVALUATING PT.
[2020-04-04] MEDS ORDERED: PIPERACILLIN/TAZOBACTAM 3.375 GM in DEXTROSE 5% 50 ML IV ONE (06:10)
[2020-04-04] MEDS ORDERED: PIPERACILLIN/TAZOBACTAM 3.375 GM VIAL IV ONE (06:22)
--- NOTE | 2020-04-04 06:35 | NUR ---
UA COLLECTED AND WALKED OVER TO LAB.
--- NOTE | 2020-04-04 06:59 | NUR ---
LABS COLLECTED AND WALKED OVER TO LAB.
[2020-04-04 07:21] LABS: BASOPHILS # (AUTO) 0.1 K/uL (0.00-0.22); BASOPHILS % (AUTO) 0.8 % (0.0-2.0); EOSINOPHILS # (AUTO) 0.1 K/uL (0-0.4); EOSINOPHILS % (AUTO) 1.7 % (0.0-4.0); HEMATOCRIT 31.6 % (36-48); HEMOGLOBIN 10.5 g/dL (12.0-16.0); LYMPHOCYTES # (AUTO) 1.3 K/uL (2.5-16.5); MEAN CORPUSCULAR HEMOGLOBIN 30 pg (27-31); MEAN CORPUSCULAR HGB CONC 33 g/dL (33-37); MEAN CORPUSCULAR VOLUME 90.1 fL (80-94); MONOCYTES # (AUTO) 0.7 K/uL (0.8-1.0); NEUTROPHILS # (AUTO) 3.9 K/uL (1.8-7.7); NEUTROPHILS % (AUTO) 64.5 % (42.2-75.2); PLATELET COUNT (AUTO) 230 K/uL (140-450); RED BLOOD CELL COUNT(AUTO) 3.51 MIL/uL (4.20-5.40)
--- NOTE | 2020-04-04 07:22 | NUR ---
ORAL CONTRAST PLACED AT PTS BEDSIDE. PT INSTRUCTED TO DRINK CONTRAST SOT HAT CT CAN TAKE PLACE 4 HOURS POST ORAL CONTRAST. PT STATES PAIN 05/05, DR DELGADILLO NOTIFIED
[2020-04-04] MEDS ORDERED: MORPHINE SULFATE 4 MG/ML SYR IVP ONE (07:25)
[2020-04-04] MEDS ORDERED: ONDANSETRON 4 MG/2 ML VIAL IVP ONE (07:25)
[2020-04-04 07:40] LABS: POTASSIUM 3.3 mmol/L (3.5-5.1)
[2020-04-04 07:41] LABS: ANION GAP 14.4 (8-16); CARBON DIOXIDE 24.9 mmol/L (21-32); CREATININE 0.7 mg/dL (0.6-1.3); TOTAL BILIRUBIN 0.3 mg/dL (0.0-1.0)
[2020-04-04 07:42] LABS: ALBUMIN 2.7 g/dL (3.4-5.0)
--- NOTE | 2020-04-04 07:43 | NUR ---
NO WORKING IV ACCESS AND UNABLE TO OBTAIN ACCESS AT THIS TIME. PER DR. PEGUERO, ADMIN THE ORDERED MORPHINE IVP IM ROUTE INSTEAD.
--- NOTE | 2020-04-04 07:46 | NUR ---
PT HAD TWO IVS PLACED BY PM AMARI, Rickie AND [place] AC. BOTH INFILTRATED. UNABLE TO GET ANOTHER IV ASCESS. VERBAL ORDER FROM DR DELGADILLO TO ADMINISTER IM MORPHINE Addendum: 04/04/20 at 0826 by [email or web address] BOTH IVS REMOVED WITH CATH INTACT
--- NOTE | 2020-04-04 08:09 | NUR ---
NADR, PAIN 01/03
--- NOTE | 2020-04-04 09:01 | NUR ---
DR OCHOA, THE SURGEON THAT PERFORMED ON PT, IS AT BEDSIDE
[2020-04-04 09:09] LABS: APPEARANCE,URINE SL CLOUDY (CLEAR); BILIRUBIN,URINE NEGATIVE (NEGATIVE); BLOOD, URINE 2+ (NEGATIVE); COLOR,URINE YELLOW (YELLOW); LEUKOCYTE ESTERASE ,URINE NEGATIVE (NEGATIVE); NITRITE, URINE POSITIVE (NEGATIVE); UGLUCOSE NEGATIVE (NEGATIVE)
--- NOTE | 2020-04-04 09:11 | NUR ---
DR. OCHOA REQUESTED TO BE CALLED AFTER THE CT REPORT COMES BACK.
[2020-04-04 10:00] LABS: WBC,URINE 0-5 /HPF (0-5)
--- NOTE | 2020-04-04 10:05 | NUR ---
PT FINISHED ORAL CONTRAST, PER DR PEGUERO WAIT [address]
--- NOTE | 2020-04-04 10:10 | NUR ---
PT AMB TO RESTROOM WITH ASTEADY GAIT
[2020-04-04] MEDS ORDERED: LORazepam 1 MG TAB PO ONE (10:20)
--- NOTE | 2020-04-04 10:23 | NUR ---
PT REQUESTING ANXIETY MEDICATION, DR PEGUERO NOTIFIED.
--- NOTE | 2020-04-04 10:23 | NUR ---
PTS HERNIA REPAIR DRESSIGN CHANGED
--- NOTE | 2020-04-04 10:33 | NUR ---
ATIVAN 1MG ADMINISTERED PO
--- NOTE | 2020-04-04 12:00 | NUR ---
PT TO CT
--- NOTE | 2020-04-04 13:42 | NUR ---
PT SLEEPING. VS STABLE. NO DISTRESS NOTED.
--- NOTE | 2020-04-04 14:04 | NUR ---
DR OCHOA PAGED TO GO OVER CT RESULTS
--- NOTE | 2020-04-04 14:14 | NUR ---
CT IMPRESSION READ TO DR OCHAO, DR OCHOA STATES THAT PT CAN VISIT HIS OFFICE TOMORROW Addendum: 04/04/20 at 1414 by [email or web address] AND IS OKAY TO BE DISCHARGED HOME
--- NOTE | 2020-04-04 14:34 | NUR ---
PT DISCHARGED WITH PAIN 10/03, NADR, STATES SOME ANXIETY RELIEF FRO, ATIVAN PO
[2020-04-04 14:35] VITALS: BP 103/67
--- NOTE | 2020-04-04 14:35 | NUR ---
Patient discharged with v/s stable. Written and verbal after care instructions given and explained. Patient alert, oriented and verbalized understanding of instructions. Ambulatory with steady gait. All questions addressed prior to discharge. ID band removed. Patient advised to follow up with PMD. Rx of ZOFRAN AND NORCO given. Patient educated on indication of medication including possible reaction and side effects. Opportunity to ask questions provided and answered. PT INSTRUCTED TO NOT DRIVE AND TAKE NORCO IT MAY CAUSE DROWSINESS PT GIVEN COPY OF LAB WORK AND CT RESULTS TOT TIFFANY TO SEE DR OCHOA TOMORROW, PT TO MAKE APPT
--- NOTE | 2020-04-06 18:10 | NUR ---
Urine culture received from lab. Culture and sensitivity received and shown to Dr. Mendoza. No new orders received. Treatment appropriate. No further care needed. Copy of C&S placed in discrepancy folder.
== END 2020-04-04 14:35 | disposition home or self-care (01) ==
LOC: MED 05:09
DX: S31.109A Unspecified open wound of abdominal wall, unspecified quadrant without penetration into peritoneal cavity, initial encounter (principal); L03.311 Cellulitis of abdominal wall; I10 Essential (primary) hypertension; Z98.890 Other specified postprocedural states; Y83.8 Other surgical procedures as the cause of abnormal reaction of the patient, or of later complication, without mention of misadventure at the time of the procedure
CPT/HCPCS: 36415; 74176; 80053; 81001; 83690; 84703; 85025; 87040; 87086; 87186; 96365; 96375; 99284; J2270; J2405; J2543